=== PATIENT | male | born 1965 | race Hispanic/Latino ===

== ENCOUNTER 2020-10-08 11:17 | Outpatient (CLI) | payer OTHER, MEDICARE ==
--- NOTE | 2020-10-08 13:54 | XRay Report ---
. CHEST 1 VIEW INDICATION: MORBID OBESITY. COMPARISON: None FINDINGS: SUPPORT DEVICES: None. HEART: Within normal limits. LUNGS/PLEURA: No acute air space or interstitial disease. ADDITIONAL FINDINGS: None. IMPRESSION: 1. No acute findings. Signer Name: Saul Herrera MD Signed: 10/08/2020 1:50 PM Workstation Name: [id number]
--- NOTE | 2020-10-08 13:55 | Fluoroscopy Report ---
Barium swallow Indication: MORBID OBESITY. Technique: Single and double contrast barium technique utilized to evaluate the esophagus. Findings: To begin the exam, swallowing was evaluated in the lateral position under direct fluorosco py. Swallowing was normal. No mucosal irregularity, mass, mass effect, or critical stenosis. There were no abnormal tertiary c ontractions as seen with dysmotility. There was trace gastroesophageal reflux reaching the distal one third of the esophagus. Impression: Trace gastroesophageal reflux. Fluoroscopic time: 0.6 minutes Number of fluoroscopic images: 11 Signer Name: Saul Herrera MD Signed: 10/08/2020 1:51 PM Workstation Name: [id number]
--- NOTE | 2020-10-09 11:11 | Treadmill Report ---
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 Baseline resting EKG showed Sinus Rhythm,wnl. 2. Patient exercise for 9 min. 45 sec. 3. Patient achieved 91% of maximal HR of 153 4. Good exercise tolerance 5. Good BP response with exercise. 6. No significant EKG changes from baseline at [facility] H/R 7. No chest pain,test stopped because of SOB. Impression: Good exercise tolerance. Negative for angina and ischemia at 91% of predicted maximal heart rate. No arrhythmia noted. Appropriate blood pressure response. Stress test dictated by Juanjose Rosado M.D. Electronically Signed On 10-09-2020 11:11:29 EDT by Juanjose Rosado
--- NOTE | 2020-10-09 11:12 | Electrocardiograph Report ---
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
== END 2020-10-08 11:18 | disposition home or self-care (01) ==
LOC: CARD 11:17
PROVIDERS: ATTEND Surgery
DX: E66.01 Morbid (severe) obesity due to excess calories (principal)
CPT/HCPCS: 71045; 74220; 93005; 93017

== ENCOUNTER 2020-10-14 06:29 | Day surgery (SDC) | payer OTHER, MEDICARE ==
[2020-10-14] MEDS ORDERED: SODIUM CHLORIDE 0.9% 1000 ML 1,000 ML IV SCH (07:00)
--- NOTE | 2020-10-14 07:23 | Anesthesia Consultation ---
Anesthesia Consult and Med Hx Date of service: 10/14/20 - Airway Anesthetic Teeth Evaluation: Good ROM Head & Neck: Adequate (s/p C3-C4 fusion, almost full range of motion) Mental/Hyoid Distance: Adequate Mallampati Class: Class III Intubation Access Assessment: Possibly Difficult - Pre-Operative Health Status ASA Pre-Surgery Classification: ASA3 Proposed Anesthetic Plan: MAC - Pulmonary Hx Asthma: Yes (have not use inhaler recently) Hx Sleep Apnea: Yes (uses CPAP) - Central Nervous System Hx Back Pain: Yes (neck pain) Hx Psychiatric Problems: Yes (Depression) - Gastrointestinal Hx Gastroesophageal Reflux Disease: Yes - Endocrine Hx Hypothyroidism: Yes - Other Systems Hx Obesity: Yes (BMI 36.8)
--- NOTE | 2020-10-14 07:23 | Anesthesia Day of Surgery ---
Anesthesia Day of Surgery - Day of Surgery Patient Examined: Yes Patient H&P Reviewed: Yes Patient is NPO: Yes
[2020-10-14] MEDS ORDERED: LIDOCAINE MPF (2%) 20 MG/1 ML VIAL 5 ML ONE (07:52)
[2020-10-14] MEDS ORDERED: propofoL 200 MG/20 ML VIAL IV ONE (07:52)
--- NOTE | 2020-10-14 08:23 | Discharge Summary ---
Providers - Providers Date of Admission: 10/14/2020 Date of discharge: 10/14/20 Attending physician: MEAGHAN BURDEN MD Primary care physician: [facility] Hospitalization Reason for admission: pre-op bariatric egd Condition: Good Procedures: egd w/ bx Hospital course: Pt presented for a pre-op EGD as part of planning for up coming bariatric surgery. Procedure was uneventful and pt recovered well and was discharged to home. Disposition: 01 HOME / SELF CARE / HOMELESS Final Discharge Diagnosis (Prints w/discharge instructions): gerd, morbid obesity Core Measure Documentation - Palliative Care Palliative Care/ Comfort Measures: Not Applicable - Core Measures Any of the following diagnoses?: none Exam - Physical Exam Narrative exam: unchanged from pre-op Plan Activity: advance as tolerated Diet: low carbohydrate Follow up with: PRIMARY CAREMD [Primary Care Provider] - 7 Days
--- NOTE | 2020-10-14 08:26 | Operative Report ---
Operative Report Operative Report: DATE: 10/14/2020 SURGERY: Upper endoscopy. SURGEON: Kranthi Gómez M.D. PROCEDURE: EGD with biopsy PRE OP DX: morbid obesity, GERD POST OP DX: morbid obesity, GERD TYPE OF ANESTHESIA: MAC. ESTIMATED BLOOD LOSS: None. COMPLICATIONS: None. SPECIMENS REMOVED: antral biopsy FINDINGS: 1. Small hiatal hernia. 2. somewhat limited exam due to food bolus in body of stomach 3. Antral gastritis INDICATIONS:INDICATION FOR PROCEDURE: Patient is a 55-year-old male with a long history of morbid obesity. he is planned to have a weight loss procedure and is here for preoperative planning EGD. PROCEDURE DETAILS: After consent was reviewed, patient was taken back to the operating room where patient was placed in the left lateral decubitus position and a bite block was placed in the mouth. After a time-out was called, MAC anesthesia was initiated. I then passed the endoscope into her oropharynx, into her esophagus, visualized the entire esophagus, which was all within normal limits. Z-line was noted to about 44cm from incisors. There was a food bolus obstructing the mucosal view approximately 25 to 30% of the gastric body. With the remaining visible mucosal surface, I then visualized the stomach and the first portion of the duodenum and there were no abnormalities I could clearly visualize except for antral gastritis. A cold forceps biopsy of the antrum was taken and will be sent to pathology to evaluate for H.pylori. I then retroflexed the scope in the stomach and visualized the hiatus and I could see a small hiatal hernia. I then desufflated the stomach and removed the endoscope. Patient tolerated procedure well and was transferred to recovery room in good and stable condition.
--- NOTE | 2020-10-14 09:48 | Post Anesthesia Evaluation ---
- Post Anesthesia Evaluation Patient Participated: Yes Airway Patent: Yes Stable Respiratory Function: Yes Nausea/Vomiting: No Temp > 96.8F: Yes Pain Manageable: Yes Adequeate Hydration: Yes Anesthesia Complications: No
[2020-10-14 12:41] VITALS: BP 111/52
== END 2020-10-14 08:55 | disposition home or self-care (01) ==
LOC: GIO 06:29
PROVIDERS: ATTEND Surgery
DX: E66.01 Morbid (severe) obesity due to excess calories (principal); K21.9 Gastro-esophageal reflux disease without esophagitis; K44.9 Diaphragmatic hernia without obstruction or gangrene; K29.50 Unspecified chronic gastritis without bleeding; K31.89 Other diseases of stomach and duodenum; J45.909 Unspecified asthma, uncomplicated; E03.9 Hypothyroidism, unspecified; Z88.0 Allergy status to penicillin; Z88.8 Allergy status to other drugs, medicaments and biological substances; Z79.899 Other long term (current) drug therapy; Z98.890 Other specified postprocedural states; Z68.36 Body mass index [BMI] 36.0-36.9, adult
CPT/HCPCS: 43239; 88305; 88342; J2704; J7030

== ENCOUNTER 2021-01-19 15:42 | Outpatient (CLI) | payer OTHER, MEDICARE ==
[2021-01-19 16:10] LABS: Basophils % (Auto) 0.5 % (0.0-1.8); Eosinophils # (Auto) 0.2 K/mm3 (0.0-0.4); Eosinophils % (Auto) 3.6 % (0.0-4.3); Hematocrit 40.6 % (35.5-45.6); Lymphocytes # (Auto) 1.2 K/mm3 (1.2-5.4); Lymphocytes % (Auto) 23.9 % (13.4-35.0); Mean Corpuscular HGB Conc 32 % (32-34); Mean Corpuscular Volume 79 fl (84-94); Monocytes # (Auto) 0.5 K/mm3 (0.0-0.8); Monocytes % (Auto) 9.4 % (0.0-7.3); Platelet Count 250 K/mm3 (140-440); Red Blood Count 5.13 M/mm3 (3.65-5.03); Red Cell Distribution Width 17.2 % (13.2-15.2)
[2021-01-19 16:52] LABS: % Iron Saturation 36.17 %; Alanine Aminotransferase 40 units/L (7-56); Albumin 4.2 g/dL (3.9-5); BUN/Creatinine Ratio 19; Blood Urea Nitrogen 19 mg/dL (9-20); Calcium 8.9 mg/dL (8.4-10.2); Chol/HDL Ratio 4.25 %; HDL Cholesterol 44 mg/dL (40-59); Hemolysis Index 6; Iron 119 ug/dL (49-181); LDL Cholesterol,Direct 127 mg/dL (50-130); Total Iron Binding Capacity 329 mcg/dL (250-450)
== END 2021-01-19 15:43 | disposition home or self-care (01) ==
LOC: LAB 15:42
PROVIDERS: ATTEND Surgery
DX: Z01.812 Encounter for preprocedural laboratory examination (principal); Z13.1 Encounter for screening for diabetes mellitus; E55.9 Vitamin D deficiency, unspecified; K30 Functional dyspepsia; E66.01 Morbid (severe) obesity due to excess calories
CPT/HCPCS: 36415; 80053; 80061; 82306; 82607; 82728; 83036; 83550; 84443; 85025; 85730